=== PATIENT | male | born 1935 | race Caucasian/White ===

== ENCOUNTER 2016-07-23 08:06 | Emergency (ER) | payer MEDICARE, OTHER ==
[~2016-07-23 08:06] MED LIST: ASCO100089 PO; ASPI-628 PO; CHOL500014 PO; CYAN500 PO; DESO15CR25 TOP; DIPH50C PO; FOLI0.8T PO; GLUC-91 PO; HALO15OI4 TP; KRIL1CAP19 PO; MAGN500C4 PO; MELA1TAB10 PO; METO25TA99 PO; MULT-1007 PO; NIAC500T84 PO; PANT20T PO; PANTETHINE PO; PYRI100T2 PO; RAMI5CAP19 PO; RED600CA2 PO; TAMS0.4C29 PO; TRYP500C PO; UBID100C16 PO; ZLP10T PO; [UNRECOGNIZED DRUG - CODE] PO; [UNRECOGNIZED DRUG - CODE] TP
[2016-07-23 08:12] VITALS: BP 157/85; PULSE 66; RESP 14; O2SAT 94
[2016-07-23] MEDS ORDERED: WARF2.5T PO (08:18)
--- NOTE | 2016-07-23 08:57 | ED.REPORT ---
HPI-Extremity Problem Upper Date of Service Jul 23, 2016 ED Provider: Ricky Zhao MD 80 year old diabetic male anticoagulated on warfarin presents to the ER due to a cat bite to the right hand inflicted this morning. He states that the wound was "spurting blood" at the time of injury. The cat belongs to the patient and is immunized. Patient is unsure if his tetanus is up to date. Nursing Notes Stated Complaint: RT HAND CAT BITE Chief Complaint: Extremity Trauma Nursing Notes Reviewed: Yes Allergies: Coded Allergies: Tdtflah-Zwk-Mzf Reductase Inhibitor (Verified Allergy, Mild, 07/23/16) terbinafine (Verified Allergy, Unknown, 07/23/16) Scheduled ([pantethine]) 600 MG PO DAILY Amoxicillin/Clav K 875-125 mg (Augmentin 875-125 mg) 1 Each Tablet 1 TABLET PO BID Ascorbic Acid (Vitamin C) 1,000 Mg Tab.chew 1,000 MG PO DAILY Aspirin (Aspir 81) 81 Mg Tablet.dr 81 MG PO DAILY Cholecalciferol (Vitamin D3) (Vitamin D) 5,000 Unit Tablet 5,000 UNIT PO DAILY Cyanocobalamin (Vitamin B12) 1,000 Mcg Tablet 1,000 MCG PO DAILY Folic Acid (Folic Acid) 0.8 Mg Tablet 0.8 MG PO DAILY Gluc/Estiven-MSM#1/Vit C/Srinivas/Bor (Dujteat-Vqjjg-OYG Complex Cplt) 1 Each Tablet 1 EACH PO DAILY Krill/Om-3/Dha/Epa/Phospho/Ast (Krill Oil 500 mg Softgel) 1 Each Capsule 1 EACH PO DAILY Magnesium Oxide (Magnesium) 500 Mg Capsule 500 MG PO DAILY Melatonin (Melatonin 1 mg Tablet) 1 Each Tablet 1 MG PO HS Metoprolol Succinate ER (Metoprolol Succinate ER) 25 Mg Tab.er.24h 25 MG PO DAILY Multivitamin (Multi-Vitamin Daily) 1 Each Tablet 1 EACH PO DAILY Niacin (Slo-Niacin) 500 Mg Tablet.er 500 MG PO DAILY Pantoprazole DR (Protonix) 20 Mg Tablet 20 MG PO DAILY Pyridoxine HCl (Vitamin B-6) 100 Mg Tablet 100 MG PO DAILY Ramipril (Altace) 5 Mg Capsule 5 MG PO DAILY Red Yeast Rice (Red Yeast Rice) 600 Mg Capsule 1,200 MG PO DAILY Tamsulosin ER (Tamsulosin ER) 0.4 Mg Cap.er.24h 0.4 MG PO BID Tryptophan (l-Tryptophan) 500 Mg Capsule 1,500 MG PO HS Ubidecarenone (Coq-10) 100 Mg Capsule 100 MG PO DAILY Warfarin Sodium (Coumadin) 2.5 Mg Tablet 2.5 MG PO DAILY Scheduled PRN Clobetasol Propionate (Clobex) 59 Ml [place] 59 ML TP DAILY PRN PRN prn Desonide (Desonide Cream) 15 Gm Cream..g. 1 APPLIC TOP BID PRN PRN For Itching Diphenhydramine Hcl (Benadryl) 25 Mg Capsule 25 MG PO HS PRN PRN For Itching Halobetasol Propionate (Halobetasol Propionate) 15 Gm Oint...g. 15 GM TP DAILY PRN PRN For Itching Ibuprofen (Advil) 200 Mg Tablet 200 MG PO PRN PRN PRN For Pain Zolpidem (Ambien) 10 Mg Tab 10 MG PO HS PRN PRN For Insomnia General Time Seen by MD: 08:55 Chief Complaint Hand injury right Hx Obtained From: Patient Arrived By: Walk-in Onset Occurred: Just prior to arrival Symptom Duration: Since onset Caused by: Animal bite (cat) Context: Occurred at: Home injury Location: : Hand right Quality: Painful Severity: Current: Moderate Severity: Maximum: Moderate Pertinent Negative: Pt denies other symptoms Immunizations: Unknown, Tetanus not up to date Past Medical History Past Medical History Notes: Superintendent Institution: Dr. Santoyo Past Medical History Coronary artery disease (status post balloon angioplasty of the mid circumflex artery on 01/07/2014) Hypertension Dyslipidemia History of colon polyps Kidney stones History of nonspecific dysphagia line history psoriasis History of paroxysmal atrial flutter with left ventricular thrombus in 2004 Reports: Coronary artery disease, Diabetes mellitus, Hyperlipidemia, Hypertension Past Surgical History Stents Reports: Angioplasty Smoking History Former Smoker Social History Alcohol Use: Denies alcohol use Drug Use: Denies drug use Other Social History: Good social support, , Local resident Ambulatory Status Independent Review of Systems Constitutional: Denies: Chills, Fever Musculoskeletal: Reports: Extremity pain (Right hand), Denies: Back pain, Joint pain, Lumbar pain, Neck pain Neurologic: Denies: Headache Complete sys rev & neg: except as marked. Physical Exam Initial Vital Signs Vital Signs (First) Date Time Temp Pulse Resp B/P Pulse Ox O2 Delivery O2 Flow Rate FiO2 07/23/16 08:12 36.1 66 14 157/85 94 Room Air Initial VS: Reviewed General/Constitutional: Well-developed, Well-nourished Head / Eyes: Atraumatic, Normocephalic, PERRL Neck: Supple, Non-tender, Full range of motion Abdomen / GI: Soft, Non-tender, No guarding, No rebound, No distention Lower Extremities: Vascular intact, Neuro intact, No swelling, No tenderness Skin: Warm, Dry, No cyanosis Neurologic: Alert, Oriented, Nonfocal Psychiatric: Mood/affect normal, Behavior normal, Normal thought content Wrist / Hand: Full range of motion, Neurologic intact, Vascular intact Right Hand: Positive: Tenderness present... RIGHT HAND: Multiple skin tears and puncture wounds about base of right thumb measuring 2mm to 8mm that extend to subcutaneous fat. No signs of infection. Good capillary refill. FROM of hand and fingers. No ligamentous involvement. Mild oozing of blood, no evidence of arterial bleeding. Re-Eval/Medical Decision Med Decision/Clinical Course 80 year old diabetic male anticoagulated on warfarin presents to the ER due to a cat bite to the right hand inflicted this morning. Here in the emergency department patient afebrile with stable vital signs and in no apparent distress. No active bleeding present. No evidence of arterial injury. No evidence of neurologic injury or ligamentous involvement. Wound copiously irrigated and no foreign bodies present. Patient well-appearing and in no apparent distress. Patient's tetanus status was updated. He was prescribed a course of prophylactic Augmentin. Follow-up and return precautions including any signs of infection were reviewed in detail and he was discharged in good condition. Re-Evaluation/Progress : Time of Eval: 09:37 Re-Evaluation/Progress Note: Discussed physical examination findings and plan to discharge. Patient is amenable to the plan. Return precautions given. All other questions addressed. Counseled Regarding: Diagnosis, Lab results, Need for follow-up, When/why to return to ED Discharge & Departure Impression: Primary Impression: Cat bite of hand Encounter type: initial encounter Laterality: left Qualified Code: S61.452A - Open bite of left hand, initial encounter Additional Impressions: Anticoagulated on Coumadin Left hand pain Disposition: Home Discharge Condition All VS Reviewed: Yes Condition: Stable Patient Instructions: Animal Bite (DC) Additional Instructions: Thank you for seeking care at emergency room. You will be discharged with a prescription for augmentin. Please take as directed. You should follow-up with your INR clinic closely. You should return to the ED immediately if you develop worsening swelling, redness, pus, or any other concerning signs or symptoms. Thank you for letting us partake in your care today. Referrals: Miguel Scott MD (PCP) Tisha Attestation Portions of this note were transcribed by Patricio Uriostegui. I, Dr. Zhao, personally performed the history, physical exam and medical decision-making; I reviewed and confirmed the accuracy of the information in the transcribed note. Signed by: Tisha Garcia, 07/23/2016 and 09:43 copies to: Miguel Scott MD, Beck O MD Jul 23, 2016 08:57 PATRICIO URIOSTEGUI Jul 23, 2016 09:35
[2016-07-23] MEDS ORDERED: AMOX-366 PO (09:34)
[2016-07-23] MEDS ORDERED: TdaP Vaccine 0.5 mL Inj IM ONE (09:35)
== END 2016-07-23 10:41 | disposition home or self-care (01) ==
LOC: SED 08:06
DX: S61.451A Open bite of right hand, initial encounter (principal); S61.011A Laceration without foreign body of right thumb without damage to nail, initial encounter; S61.031A Puncture wound without foreign body of right thumb without damage to nail, initial encounter; W55.01XA Bitten by cat, initial encounter; Y93.89 Activity, other specified; Y92.009 Unspecified place in unspecified non-institutional (private) residence as the place of occurrence of the external cause; Y99.8 Other external cause status; I11.9 Hypertensive heart disease without heart failure; E11.59 Type 2 diabetes mellitus with other circulatory complications; I25.10 Atherosclerotic heart disease of native coronary artery without angina pectoris; E78.5 Hyperlipidemia, unspecified; Z95.5 Presence of coronary angioplasty implant and graft; Z79.82 Long term (current) use of aspirin; Z79.01 Long term (current) use of anticoagulants; Z87.891 Personal history of nicotine dependence; Z23 Encounter for immunization; Z88.8 Allergy status to other drugs, medicaments and biological substances
CPT/HCPCS: 85610; 90471; 90715; 99283; G0463

== ENCOUNTER 2016-07-24 23:23 | Inpatient (IN) | payer MEDICARE, OTHER ==
[~2016-07-24] VITALS: Ht 170.2 cm; Wt 75.9 kg
[~2016-07-24 23:23] MED LIST changes: +AMOX-366 PO; +WARF2.5T PO
[2016-07-24 23:31] VITALS: BP 138/87; PULSE 89; RESP 18; O2SAT 95
--- NOTE | 2016-07-24 23:41 | ED.REPORT ---
HPI-Extremity Problem Upper Date of Service Jul 24, 2016 ED Provider: Placido Briggs MD This is an 80 year old male with a history of atrial fibrillation, CAD, HTN, DM presenting to the emergency department complaining of R arm swelling and erythema that worsened today. Pt recently had laceration management of a cat bite to the R hand that occurred yesterday. Pt returned to ED due to increasing redness and swelling extending up the arm. Pt on Augmentin at this time. Denies fever, chills, nausea, vomiting, or any other symptoms at this time. Nursing Notes Stated Complaint: R HAND INFECTION Chief Complaint: General Complaint Nursing Notes Reviewed: Yes Allergies: Coded Allergies: Zmbafys-Hcw-Fnv Reductase Inhibitor (Verified Allergy, Mild, 07/24/16) Scheduled ([pantethine]) 600 MG PO DAILY Amoxicillin/Clav K 875-125 mg (Augmentin 875-125 mg) 1 Each Tablet 1 TABLET PO BID Ascorbic Acid (Vitamin C) 1,000 Mg Tab.chew 1,000 MG PO DAILY Aspirin (Aspir 81) 81 Mg Tablet.dr 81 MG PO DAILY Cholecalciferol (Vitamin D3) (Vitamin D) 5,000 Unit Tablet 5,000 UNIT PO DAILY Cyanocobalamin (Vitamin B12) 1,000 Mcg Tablet 1,000 MCG PO DAILY Folic Acid (Folic Acid) 0.8 Mg Tablet 0.8 MG PO DAILY Gluc/Estiven-MSM#1/Vit C/Srinivas/Bor (Jwzxcsb-Oicmq-EFF Complex Cplt) 1 Each Tablet 1 EACH PO DAILY Krill/Om-3/Dha/Epa/Phospho/Ast (Krill Oil 500 mg Softgel) 1 Each Capsule 1 EACH PO DAILY Magnesium Oxide (Magnesium) 500 Mg Capsule 500 MG PO DAILY Melatonin (Melatonin 1 mg Tablet) 1 Each Tablet 1 MG PO HS Metoprolol Succinate ER (Metoprolol Succinate ER) 25 Mg Tab.er.24h 25 MG PO DAILY Multivitamin (Multi-Vitamin Daily) 1 Each Tablet 1 EACH PO DAILY Niacin (Slo-Niacin) 500 Mg Tablet.er 500 MG PO DAILY Pantoprazole DR (Protonix) 20 Mg Tablet 20 MG PO DAILY Pyridoxine HCl (Vitamin B-6) 100 Mg Tablet 100 MG PO DAILY Ramipril (Altace) 5 Mg Capsule 5 MG PO DAILY Red Yeast Rice (Red Yeast Rice) 600 Mg Capsule 1,200 MG PO DAILY Tamsulosin ER (Tamsulosin ER) 0.4 Mg Cap.er.24h 0.4 MG PO BID Tryptophan (l-Tryptophan) 500 Mg Capsule 1,500 MG PO HS Ubidecarenone (Coq-10) 100 Mg Capsule 100 MG PO DAILY Warfarin Sodium (Coumadin) 2.5 Mg Tablet 2.5 MG PO DAILY Scheduled PRN Clobetasol Propionate (Clobex) 59 Ml [place] 59 ML TP DAILY PRN PRN prn Desonide (Desonide Cream) 15 Gm Cream..g. 1 APPLIC TOP BID PRN PRN For Itching Diphenhydramine Hcl (Benadryl) 25 Mg Capsule 25 MG PO HS PRN PRN For Itching Halobetasol Propionate (Halobetasol Propionate) 15 Gm Oint...g. 15 GM TP DAILY PRN PRN For Itching Ibuprofen (Advil) 200 Mg Tablet 200 MG PO PRN PRN PRN For Pain Zolpidem (Ambien) 10 Mg Tab 10 MG PO HS PRN PRN For Insomnia General Time Seen by MD: 23:35 Chief Complaint Arm injury right Hx Obtained From: Patient Arrived By: Walk-in Onset Occurred: 1 - 4 hours ago Symptom Duration: Since onset Severity: Current: Mild Pertinent Negative: Pt denies other symptoms Recent Healthcare: No recent hospitalization, Recent doctor visit Similar Sx Previous: No Past Medical History Past Medical History Notes: Final Inspector: Dr. Santoyo Past Medical History Coronary artery disease (status post balloon angioplasty of the mid circumflex artery on 01/07/2014) Hypertension Dyslipidemia History of colon polyps Kidney stones History of nonspecific dysphagia line history psoriasis History of paroxysmal atrial flutter with left ventricular thrombus in 2004 Reports: Coronary artery disease, Diabetes mellitus, Hyperlipidemia, Hypertension Reports: Atrial fibrillation Past Surgical History Stents Reports: Angioplasty Smoking History Former Smoker Social History Alcohol Use: Denies alcohol use Drug Use: Denies drug use Other Social History: Good social support, , Local resident Ambulatory Status Independent Review of Systems Constitutional: Denies: Chills, Fever Musculoskeletal: Reports: Extremity pain Skin: Reports Rash, Reports Swelling Neurologic: Denies: Headache Complete sys rev & neg: except as marked. GI: Denies: Nausea, Vomiting Physical Exam Initial Vital Signs Vital Signs (First) Date Time Temp Pulse Resp B/P Pulse Ox O2 Delivery O2 Flow Rate FiO2 07/24/16 23:31 36.8 89 18 138/87 95 Room Air Initial VS: Reviewed General/Constitutional: Well-developed, Well-nourished Head / Eyes: Atraumatic, Normocephalic, PERRL ENT: Mucous membranes moist, Conjunctiva normal, No scleral icterus Neck: Supple, Non-tender, Full range of motion Respiratory: Breath sounds normal, Clear to auscultation, No respiratory distress Cardiovascular: Regular rate & rhythm, Heart sounds normal, Intact distal pulses Abdomen / GI: Soft, Non-tender, No guarding, No rebound, No distention Lower Extremities: Vascular intact, Neuro intact, No swelling, No tenderness Skin: Warm, Dry, No cyanosis Neurologic: Alert, Oriented, Nonfocal Psychiatric: Mood/affect normal, Behavior normal, Normal thought content Wrist / Hand: Neurologic intact, Vascular intact R hand: Slight erythema on palmar aspect of R wrist extending to mid forearm Interpretation & Diagnostics Lab Results Interpretation Result Diagram: 07/25/16 0035 07/25/16 0035 Test 07/25/16 00:35 07/25/16 00:59 White Blood Count 12.0th/mm3 (3.8-10.1) Red Blood Count 4.29mil/mm3 (4.40-5.80) Hemoglobin 14.1g/dL (13.8-17.2) Hematocrit 42.1% (41.0-50.0) Mean Corpuscular Volume 98.1fL (81-100) Mean Corpuscular Hemoglobin 32.9pg (27.0-35.0) Mean Corpuscular Hemoglobin Concent 33.5% (32.0-37.0) Red Cell Distribution Width 13.2% (12.3-15.4) Platelet Count 168bil/L (150-400) Neutrophils (%) (Auto) 71.7% (40-74) Lymphocytes (%) (Auto) 16.8% (14-46) Monocytes (%) (Auto) 10.4% (4-12) Eosinophils (%) (Auto) 0.7% (0-5) Basophils (%) (Auto) 0.2% (0-3) Sodium Level 138mEq/L (134-144) Potassium Level 4.8mEq/L (3.5-5.2) Chloride Level 99mEq/L (97-108) Carbon Dioxide Level 25mmol/L (18-29) Blood Urea Nitrogen 25mg/dL (8-27) Creatinine 0.92mg/dL (0.76-1.27) Estimat Glomerular Filtration Rate 84mL/min (>59) Glucose Level 157mg/dL (60-99) Calcium Level 9.5mg/dL (8.5-10.1) Total Bilirubin 0.5mg/dL (0.0-1.2) Aspartate Amino Transf (AST/SGOT) 26U/L (0-50) Alanine Aminotransferase (ALT/SGPT) 18U/L (0-44) Alkaline Phosphatase 47U/L (25-160) C-Reactive Protein 11.5mg/dL (0.0-0.5) Total Protein 7.3g/dL (6.4-8.4) Albumin 4.2g/dL (3.4-5.0) Lactic Acid Level 0.9mmol/L (0.4-2.0) Re-Eval/Medical Decision Med Decision/Clinical Course 80-year-old male history of CAD, diabetes, [place] presenting several days status post right hand cat bite on Augmentin at home presenting with worsening cellulitis and hand swelling today. No fevers, nausea vomiting. He has a cellulitis extending medial aspect right forearm one third distal forearm. Moderate right hand swelling. No purulent discharge. White blood cell count 12,000. CRP 11. Patient given 1 Zosyn in the ER and blood cultures sent prior to antibiotics. Will be admitted for observation given failure of outpatient antibiotics. May warrant hand surgery consultation in the morning for possible washout. Re-Evaluation/Progress : Time of Eval: 01:06 Re-Evaluation/Progress Note: Discussed lab results and need for admission, pt understands and agrees with plan, all questions addressed. Consultation : Referral / Consult Name: Annmarie Machuca MD Consulted With: Hospitalist Call Returned at: 01:15 Assembler Garment Form: Accepts admit Counseled Regarding: Diagnosis, Need for follow-up, Need for admission Discharge & Departure Impression: Primary Impression: Cellulitis Site of cellulitis: extremity Site of cellulitis of extremity: upper extremity Laterality: right Qualified Code: L03.113 - Cellulitis of right upper limb Disposition: ADMITTED TO HOSPITAL Discharge Condition All VS Reviewed: Yes Condition: Stable Referrals: Miguel Scott MD (PCP) Scribe Attestation Portions of this note were transcribed by Janette Holder. I, Dr. Briggs personally performed the history, physical exam and medical decision-making; I reviewed and confirmed the accuracy of the information in the transcribed note. Signed by Tisha Desir, 07/24/2016 at 03:00. Placido Briggs MD Jul 24, 2016 23:41 JANETTE HOLDER Jul 24, 2016 23:43
[2016-07-24] MEDS ORDERED: Piperacillin-Tazo 3.375 Gm Inj 3.375 GM in Dextrose 5% Minibag Plus 50 ML IV ONE (23:55)
[2016-07-25 00:51] LABS: BASOPHILS % (AUTO) 0.2 % (0-3); EOSINOPHILS % (AUTO) 0.7 % (0-5); MONOCYTES % (AUTO) 10.4 % (4-12); Mean Corpuscular Hemoglobin 32.9 pg (27.0-35.0); Mean Corpuscular Volume 98.1 fL (81-100); NEUTROPHILS % (AUTO) 71.7 % (40-74); Platelet Count 168 bil/L (150-400)
[2016-07-25] MEDS ORDERED: Ondansetron 2 mg/mL 2 mL Inj IVPUSH PRN ×2 (01:25→02:15)
[2016-07-25] MEDS ORDERED: Alum-Mag Hydrox-Simeth 30 mL Suspension PO PRN ×2 (01:25→02:15)
[2016-07-25] MEDS ORDERED: HYDROcodone-APAP 5-325 mg Tablet PO PRN (02:15)
[2016-07-25] MEDS ORDERED: Polyethylene Glycol (PEG) 17 Gm Powder PO PRN (02:15)
--- NOTE | 2016-07-25 03:14 | PCM.HPMED ---
Subjective Date of Service Jul 25, 2016 Primary Provider: Admitting Physician: Primary Care Physician: Miguel Scott MD Attending Physician: Chief Complaint: Right forearm pain and swelling History of Present Illness: Patient is an 80-year-old male with paroxysmal atrial fibrillation, CAD s/p PCI , hypertension and diabetes presenting with right forearm pain swelling and erythema. The patient sustained a cat bite on his right hand and was seen in the ED on 07/23/2016. He was discharged with Augmentin but returned to [facility] ED today since he noticed increased swelling and tracking of the erythema up his forearm. Patient reports the pain and swelling has improved some since this morning. Patient reports minimal decrease with range of motion, most noticeable with his thumb. He reports associated fever and chills but denies numbness or tingling of his fingers, nausea, emesis, shortness of breath, dizziness. In the ED, vitals: temp 36.8, HR 89, RR 18 satting 95% on room air, BP 138/87. Notable labs: WBC 12.0, CRP 11.5. Zosyn was started in the ED. Review of Systems: A comprehensive review of systems was conducted with the patient and found to be negative except as above in the History of Present Illness. Allergies Coded Allergies: Myjeqst-Can-Rrp Reductase Inhibitor (Verified Allergy, Mild, 07/24/16) Home Medications Ramipril 5mg daily Clobetasol 0.05 % Topical Solution - apply once daily to affected areas CoQ-10 100mg daily Coumadin 5mg tablet Flomax 0.8mg daily 1/2 hour following the same meal each day for bladder Vitamin D 2,000u daily ASA 81mg daily Methocarbamol 500 mg tablet TID MSM 1,000 mg Cap SL nitroglycerin 0.4mg PRN Metoprolol succinate 25mg daily Vitamin C 1,000mg daily PMH Paroxysmal atrial fibrillation CAD s/p PCI Hypertension Type 2 diabetes mellitus Dyslipidemia Psoriasis . Surgical History Cataracts Appendectomy . 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 No acute distress, well-developed, well-nourished, appropriately interactive HEENT: Normocephalic, atraumatic. External ears without defect. Pupils equal, round, and reactive to light. Anicteric sclerae, moist conjunctivae, and no lid lag. Oropharynx free of erythema and cobble stoning with moist mucosa. Neck: Supple. No lymphadenopathy or thyromegaly. Cardiovascular: Regular rate and rhythm with no murmurs, rubs, or gallops appreciated Pulmonary: Clear to auscultation bilaterally with no crackles, wheezes, or rhonchi. Normal respiratory effort with no use of accessory muscles. Abdomen: Bowel tones present. Soft, nontender, nondistended. Extremities: Right hand with erythema extending to ventral surface mid-forearm. Swelling on dorsal surface of right hand. Full range of motion of right hand and digits. 1st MTP joint with swelling. Skin: Normal temperature, turgor, and texture. Left lower extremity with plaque. Neurological: Cranial nerves grossly intact. Psychiatric: Normal mood and affect. Alert and oriented to person, place, and time. Lab and Diagnostics Result Diagram: 07/25/16 0035 07/25/16 003 Assessment & Plan Patient is an 80-year-old male with paroxysmal atrial fibrillation, CAD s/p PCI , hypertension and diabetes presenting with right forearm pain, swelling and erythema, and admitted for cellulitis. 1. Right hand and forearm cellulitis, acute. Present on admission. Active -Patient on outpatient Augmentin for one day but symptoms worsened -Right hand x-ray pending -Pending: ASO, streptozyme, MRSA screen -Continue Zosyn 2. CAD s/p PCI, chronic. Present on admission -Continue ASA, metoprolol 3. Hypertension, chronic. Present on admission -Continue home dose ramipril, metoprolol 4. Paroxysmal atrial fibrillation, chronic. Present on admission -Warfarin dosed per pharmacy -INR in AM -Telemetry 5. BPH, chronic. Present on admission -Continue home dose tamsulosin 6. Type 2 diabetes mellitus, chronic. Present on admission -Bedside blood glucose checks -Not on outpatient oral antihyperglycemic agent Patient Status: Patient is admitted under inpatient status with expected length of stay greater than 2 midnights due to severity of presenting symptoms, risk of adverse event, and complexity of treatment plan. VTE Prophylaxis: Other (On Warfarin) Resuscitation Status: CPR: Attempt Resuscitation Attending Statement Pt seen and examined by myself and agree with above plan. Gregory Abbasi DO Jul 25, 2016 02:30 Annmarie Machuca MD Jul 25, 2016 06:51
[2016-07-25 03:35] VITALS: BP 98/57; PULSE 86; RESP 18; O2SAT 93
--- NOTE | 2016-07-25 05:00 | NUR ---
Admit and right hand. Patient is being held in the ER due to waiting for a room on the floor. Patient is A/Ox4 and answering all questions appropriately. Patient reported that several days ago his cat stretched his hand and since then his hand has become red, swollen and painful. CMS is intact. Patient reports mild pain with movement. Admit process completed and patient denies needs at this time.
[2016-07-25 05:26] LABS: BASOPHILS % (AUTO) 0.2 % (0-3); EOSINOPHILS % (AUTO) 1.2 % (0-5); MONOCYTES % (AUTO) 11.4 % (4-12); Mean Corpuscular Hemoglobin 32.5 pg (27.0-35.0); Mean Corpuscular Volume 97.5 fL (81-100); NEUTROPHILS % (AUTO) 69.4 % (40-74); Platelet Count 155 bil/L (150-400)
[2016-07-25 05:55] LABS: INR 1.27 ratio
--- NOTE | 2016-07-25 06:13 | NUR ---
Patient refused tele. Patient refused tele and stated that he didn't need it. Patient reported that all he needs is sleep and antibiotics.
[2016-07-25 08:18] VITALS: BP 124/70; PULSE 78; RESP 19; O2SAT 94
[2016-07-25] MEDS: Piperacillin-Tazo 3.375 Gm Inj 3.375 GM in Dextrose 5% Minibag Plus 50 ML IV SCH ×2 (08:30→17:13)
[2016-07-25] MEDS: MeTOProlol XL 25 mg ER24 Tablet PO SCH (08:30)
--- NOTE | 2016-07-25 09:08 | DRSVH ---
PROCEDURE: X-RAY RIGHT HAND, TWO VIEWS ([id number]) INDICATIONS: right hand swelling and pain TECHNIQUE: 3 views of the hand(s) acquired. COMPARISON: None. FINDINGS: Bones: No fractures or dislocations. Fixed flexion deformity of the fifth PIP joint. Mild osteophy tic changes. Carpal bones are normally aligned. No suspicious bony lesions. Soft tissues: No suspicious soft tissue calcifications. IMPRESSION: No displaced fracture seen. If there is continued pain, followup exam or additional renu ging such as MRI or CT could be performed for further assessment. Dictated by: Jesus SEXTON Interpreted: Irene Chery MD on 07/25/2016 at 9:07 Transcribed by: ANA PAULA on 07/25/2016 at 9:07 Approved by: Irene Chery M.D. on 07/25/2016 at 10:38
[2016-07-25] MEDS ORDERED: WARF5TAB7 PO (10:40)
[2016-07-25 12:29] VITALS: BP 107/61; PULSE 63; RESP 19; O2SAT 93
--- NOTE | 2016-07-25 15:19 | PCM.CONPHA ---
Subjective Right forearm pain and swelling Reason for Pharmacy Consult: Anticoagulation Management Assessment/Plan Assessment/Plan Warfarin Management by Pharmacy Indication: AFIB CHADS2-VASc: 5 Home Dose: Warfarin 5 mg daily INR Goal: 2-3 Duration: Unknown Wt: 76 kg Anticoagulation Trends Lab Date Result Dose INR 07/25/16 1.27 Therapeutic bridge therapy: No Assessment/Plan - Subtherapeutic INR. Unclear if dose was taken last PM. -Will initiate warfarin 5 mg tonight. -Pharmacy to monitor INR/CBC/signs of bleeding while inpatient. Thanks, Joe Aponte Pharm.D. Joe Aponte Jul 25, 2016 15:19
--- NOTE | 2016-07-25 17:45 | NUR ---
hand swelling right hand redness and swelling has improved throughout the day. redness/swelling decreased. patient stated that, "my hand is feeling much better this evening". continue to monitor
[2016-07-25 18:23] VITALS: BP 123/74; PULSE 61; RESP 18; O2SAT 93
[2016-07-25] MEDS ORDERED: 0.9% Sodium Chloride 250 ML ONE (19:45)
[2016-07-25 20:03] VITALS: BP 125/78; PULSE 66; RESP 16; O2SAT 92
[2016-07-25 21:27] LABS: APPEARANCE,URINE CLEAR (CLEAR,HAZY); COLOR,URINE STRAW (YELLOW)
[2016-07-25 21:28] LABS: OCCULT BLOOD,URINE NEGATIVE (NEGATIVE); PH,URINE 6.5 (5.0-8.0); UROBILINOGEN,URINE NORMAL (NORMAL)
[2016-07-25] MEDS ORDERED: DIPH25CA6 PO (22:44)
[2016-07-25] MEDS ORDERED: MULT1CAP33 PO (22:44)
[2016-07-25] MEDS ORDERED: ASPI-973 PO (22:44)
[2016-07-25] MEDS ORDERED: CHOL5000 PO (22:44)
[2016-07-25] MEDS ORDERED: IBUP200C PO (22:44)
[2016-07-26] MEDS ORDERED: 0.9% Sodium Chloride 250 ML ONE (01:12)
[2016-07-26 01:15] VITALS: BP 122/81; PULSE 62; RESP 16; O2SAT 93
[2016-07-26] MEDS: Piperacillin-Tazo 3.375 Gm Inj 3.375 GM in Dextrose 5% Minibag Plus 50 ML IV SCH ×2 (01:35→08:41)
--- NOTE | 2016-07-26 02:02 | NUR ---
SLEEP Earlier this shift, pt reported not sleeping well the previous night and when asked about sleep aids, he reported he has "bad reactions" with any sleep aid. Pt stated he is a light sleeper and the bed air shifting wakes him up. This RN educated pt on the pressure-reducing functions of bed and the only way to stop this function is to turn the bed off. Pt reported he would rather have the bed unplugged and not use the buttons than be kept awake with the movement. RN unplugged bed. Later, pt requested putting the HOB up and stated he would try to stay in one position and maybe call to turn the bed off later. Hourly rounding in place.
[2016-07-26 05:59] LABS: Mean Corpuscular Hemoglobin 32.1 pg (27.0-35.0); Mean Corpuscular Volume 97.5 fL (81-100)
[2016-07-26 06:11] LABS: INR 1.2 ratio
--- NOTE | 2016-07-26 08:21 | PCM.PHAPRO ---
Progress Right forearm pain and swelling INR 1.27 1.20 INR change -0.07 Warf Dose 5 5 Miguel Rashid Jul 26, 2016 08:21
[2016-07-26 08:32] VITALS: BP 121/74; PULSE 74; RESP 18; O2SAT 96
[2016-07-26] MEDS: MeTOProlol XL 25 mg ER24 Tablet PO SCH (08:41)
--- NOTE | 2016-07-26 09:02 | NUR ---
Social Work Initial Assessment: SW met with patient at bedside to discuss discharge plan. Patient is a 80 year old male admitted on 07/25/16 for cellulitis. Patient payer as Medicare and [employer]. 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 Patient PCP as MD Scott. Patient resides in [facility] with Tangela, who assists with needs at home. Patient pharmacy of choice as [facility]. Patient has no previous HHC, SNF, or DME history. Patient states being independent with needs and states having no identified discharge needs at this time. Patient states having AD on file with the hospital. Patient denied any discharge needs at this time. SW to follow. PLAN: home with , via POV, pending clinical course. No anticipated discharge needs at this time. SW to follow. Ralph KERNS Addendum: 07/26/16 at 0905 by JACE COONEY Amended: Links added.
[2016-07-26] MEDS ORDERED: CLIN300C3 PO (12:29)
--- NOTE | 2016-07-26 12:32 | PCM.DIMED ---
Discharge Instructions Date of Service Jul 26, 2016 Dates of Hospitalization Jul 25, 2016 at 05:51 Discharge Diagnosis Discharge Diagnosis Right hand cellulitis , Paroxysmal atrial fibrillation CAD s/p PCI, Hypertension, Type 2 diabetes mellitus, Dyslipidemia, Psoriasis Diet Low fat, Low Sodium Activity No restrictions Call your provider Fever or Chills Patient Instructions Follow-up with PCP in: 1 week (Primary care doctor ) Adair Sevilla MD Jul 26, 2016 12:32
--- NOTE | 2016-07-26 14:15 | NUR ---
Discharge patient discharged home at 1410hrs today. to drive. discharge instructions reviewed; medications and follow-up care. Signs and symptoms to watch for over next several days, if worse seek medical attention. patient verbalized understanding and agreed with plan of care.
--- NOTE | 2016-07-26 17:10 | PCM.DC.MED ---
Discharge Summary Date of Service Jul 26, 2016 Dates of Hospitalization Date of Hospital Admission Jul 25, 2016 at 05:51 Date of Discharge: Jul 26, 2016 Providers: Admitting Physician: Annmarie Machuca MD Primary Care Physician: Miguel Scott MD Attending Physician: Annmarie Machuca MD Diagnosis at Time of Discharge Diagnosis at Time of Discharge Right hand cellulitis , Paroxysmal atrial fibrillation CAD s/p PCI, Hypertension, Type 2 diabetes mellitus, Dyslipidemia, Psoriasis Brief History Patient is an 80-year-old male with paroxysmal atrial fibrillation, CAD s/p PCI , hypertension and diabetes presenting with right forearm pain swelling and erythema. The patient sustained a cat bite on his right hand and was seen in the ED on 07/23/2016. He was discharged with Augmentin but returned to [facility] ED today since he noticed increased swelling and tracking of the erythema up his forearm. Patient reports the pain and swelling has improved some since this morning. Patient reports minimal decrease with range of motion, most noticeable with his thumb. He reports associated fever and chills but denies numbness or tingling of his fingers, nausea, emesis, shortness of breath, dizziness. In the ED, vitals: temp 36.8, HR 89, RR 18 satting 95% on room air, BP 138/87. Notable labs: WBC 12.0, CRP 11.5. Zosyn was started in the ED. Hospital Course Patient is an 80-year-old male with paroxysmal atrial fibrillation, CAD s/p PCI , hypertension and diabetes presenting with right forearm pain, swelling and erythema, and admitted for cellulitis. 1. Right hand and forearm cellulitis, acute. Present on admission. Active -Patient falied outpatient treatment with Augmentin Patient improved dramatically with IV Unasyn. He is discharged home today on a seven-day course of clindamycin, 2. CAD s/p PCI, chronic. Present on admission -Continue ASA, metoprolol 3. Hypertension, chronic. Present on admission -Continue home dose ramipril, metoprolol 4. Paroxysmal atrial fibrillation, chronic. Present on admission Continue offering as outpatient. PCP to monitor INR 5. BPH, chronic. Present on admission on tamsulosin 6. Type 2 diabetes mellitus, chronic. Present on admission Diet-controlled patient showed dramatic improvement of her right hand cellulitis following a cat bite. He is discharged home in stable condition on a seven-day course of oral clindamycin Exam Vital Signs (Last) Date Time Temp Pulse Resp B/P Pulse Ox O2 Delivery O2 Flow Rate FiO2 07/26/16 08:32 37.1 74 18 121/74 96 Room Air Exam General: Well-nourished male sitting in chair comfortably. Neck: Supple, trachea is midline Chest: Normal respiratory effort Lung : clear bilaterally wheezing heart: irregular rate and rhythm Abdomen: Benign Extremity: Right hand cellulitis over the thumb and dorsal aspect of the hand. Test 07/25/16 00:35 07/25/16 00:59 07/25/16 05:22 07/25/16 21:13 C-Reactive Protein 11.5mg/dL (0.0-0.5) Lactic Acid Level 0.9mmol/L (0.4-2.0) Neutrophils (%) (Auto) 69.4% (40-74) Lymphocytes (%) (Auto) 17.6% (14-46) Monocytes (%) (Auto) 11.4% (4-12) Eosinophils (%) (Auto) 1.2% (0-5) Basophils (%) (Auto) 0.2% (0-3) Streptozyme 61.9IU/mL (0.0-200.0) Urine Color Straw (YELLOW) Urine Appearance Clear (CLEAR,HAZY) Urine pH 6.5 (5.0-8.0) Urine Specific [place] 1.020 (1.003-1.035) Urine Protein Negativemg/dL (NEG,TRACE) Urine Glucose (UA) Negativemg/dL (NEGATIVE) Urine Ketones Negativemg/dL (NEGATIVE) Urine Occult Blood Negative (NEGATIVE) Urine Nitrite Negative (NEGATIVE) Urine Bilirubin Negative (NEGATIVE) Urine Urobilinogen Normalmg/dL (NORMAL) Urine Leukocyte Esterase Negative (NEGATIVE) Urine RBC 0-2/hpf (0-2) Urine WBC 0-5/hpf (0-5) Urine Epithelial Cells None/hpf (NONE-MOD) Urine Crystals None seen (NONE SEEN) Urine Bacteria None/hpf (NONE-FEW) Urine Hyaline Casts None/lpf (NONE) Urine Granular Casts None seen (NONE SEEN) Urine Waxy Casts None seen (NONE SEEN) Urine Red Blood Cell Casts None seen (NONE SEEN) Urine White Blood Cell Casts None seen (NONE SEEN) Urine Mucus None seen (None Seen) Urine Trichomonas None seen (NONE SEEN) Urine Yeast None (NONE SEEN) Urinalysis Comment None Urine Culture Reflexed Not indicated Test 07/26/16 05:40 White Blood Count 8.4th/mm3 (3.8-10.1) Red Blood Count 3.96mil/mm3 (4.40-5.80) Hemoglobin 12.7g/dL (13.8-17.2) Hematocrit 38.6% (41.0-50.0) Mean Corpuscular Volume 97.5fL (81-100) Mean Corpuscular Hemoglobin 32.1pg (27.0-35.0) Mean Corpuscular Hemoglobin Concent 32.9% (32.0-37.0) Red Cell Distribution Width 13.0% (12.3-15.4) Platelet Count 161bil/L (150-400) Prothrombin Time 12.9sec (8.1-12.5) Prothromb Time International Ratio 1.20ratio Sodium Level 141mEq/L (134-144) Potassium Level 4.3mEq/L (3.5-5.2) Chloride Level 103mEq/L (97-108) Carbon Dioxide Level 24mmol/L (18-29) Blood Urea Nitrogen 19mg/dL (8-27) Creatinine 0.80mg/dL (0.76-1.27) Estimat Glomerular Filtration Rate 99mL/min (>59) Glucose Level 144mg/dL (60-99) Calcium Level 8.8mg/dL (8.5-10.1) Total Bilirubin 0.4mg/dL (0.0-1.2) Aspartate Amino Transf (AST/SGOT) 16U/L (0-50) Alanine Aminotransferase (ALT/SGPT) 11U/L (0-44) Alkaline Phosphatase 39U/L (25-160) Total Protein 5.7g/dL (6.4-8.4) Albumin 3.5g/dL (3.4-5.0) Discharge Medications Discharge Medications ([pantethine]) 600 MG PO DAILY (Reported) Ascorbic Acid (Vitamin C) 1,000 Mg Tab.chew 1,000 MG PO DAILY (Reported) Aspirin (Aspirin) 81 Mg Tablet 81 MG PO DAILY (Reported) Cholecalciferol (Vitamin D3) (Vitamin D3) 5,000 Unit Capsule 5,000 UNIT PO DAILY (Reported) Clindamycin HCl (Cleocin) 300 Mg Capsule 500 MG PO TID Prescribed by: YEIMY IRELAND MD Cyanocobalamin (Vitamin B12) 1,000 Mcg Tablet 1,000 MCG PO DAILY (Reported) Gluc/Estiven-MSM#1/Vit C/Srinivas/Bor (Wvsitlb-Kgcrp-DRI Complex Cplt) 1 Each Tablet 1 EACH PO DAILY (Reported) Krill/Om-3/Dha/Epa/Phospho/Ast (Krill Oil 500 mg Softgel) 1 Each Capsule 1 EACH PO DAILY (Reported) Magnesium Oxide (Magnesium) 500 Mg Capsule 500 MG PO DAILY (Reported) Metoprolol Succinate ER (Metoprolol Succinate ER) 25 Mg Tab.er.24h 25 MG PO DAILY (Reported) Multivitamin (Multivitamins) 1 Each Capsule 1 EACH PO DAILY (Reported) Ramipril (Altace) 5 Mg Capsule 5 MG PO DAILY (Reported) Red Yeast Rice (Red Yeast Rice) 600 Mg Capsule 1,200 MG PO DAILY (Reported) Tamsulosin ER (Tamsulosin ER) 0.4 Mg Cap.er.24h 0.4 MG PO BID (Reported) Ubidecarenone (Coq-10) 100 Mg Capsule 100 MG PO DAILY (Reported) Warfarin Sodium (Warfarin Sodium) 5 Mg Tablet 5 MG PO DAILY (Reported) As needed Clobetasol Propionate (Clobex) 59 Ml [place] 59 ML TP DAILY PRN PRN prn (Reported ) Desonide (Desonide Cream) 15 Gm Cream..g. 1 APPLIC TOP BID PRN PRN For Itching ( Reported) Halobetasol Propionate (Halobetasol Propionate) 15 Gm Oint...g. 15 GM TP DAILY PRN PRN For Itching (Reported) Ibuprofen (Ibuprofen) 200 Mg Capsule 200 MG PO QID PRN PRN For Pain (Reported) diphenhydrAMINE HCl (Benadryl) 25 Mg Capsule 25 MG PO HS PRN PRN (Reported) Followup Plan Disposition: Home Discharge Diet: Low fat, Low Sodium Discharge Activity: No restrictions Follow-up with PCP in: 1 week (Primary care doctor ) Time spent 35 minutes. Patient seen and examined on the day of discharge Yeimy Ireland MD Jul 26, 2016 17:10
== END 2016-07-26 14:07 | disposition home or self-care (01) | DRG 603 ==
LOC: SED 23:23 → OFED 07-25 05:51 → MOC 07-25 13:03
PROVIDERS: ADMIT Specialist; ATTEND Specialist
DX: L03.113 Cellulitis of right upper limb (principal); Z79.82 Long term (current) use of aspirin; Z79.01 Long term (current) use of anticoagulants; Z86.010 Personal history of colon polyps; Z98.61 Coronary angioplasty status; Z87.891 Personal history of nicotine dependence; I25.10 Atherosclerotic heart disease of native coronary artery without angina pectoris; I10 Essential (primary) hypertension; I48.0 Paroxysmal atrial fibrillation; N40.0 Benign prostatic hyperplasia without lower urinary tract symptoms; E11.9 Type 2 diabetes mellitus without complications

== ENCOUNTER 2017-01-09 01:32 | Day surgery (SDC) | payer MEDICARE, OTHER ==
[~2017-01-09 01:32] MED LIST changes: -AMOX-366 PO; -ASPI-628 PO; +ASPI-973 PO; +CHOL5000 PO; -CHOL500014 PO; +DIPH25CA6 PO; -DIPH50C PO; -FOLI0.8T PO; +IBUP200C PO; -MELA1TAB10 PO; +METO25TA3 PO; -MULT-1007 PO; +MULT1CAP33 PO; -NIAC500T84 PO; -PANT20T PO; -PYRI100T2 PO; -TAMS0.4C29 PO; +TAMS0.4C98 PO; -TRYP500C PO; -WARF2.5T PO; +WARF5TAB7 PO; -ZLP10T PO; -[UNRECOGNIZED DRUG - CODE] PO
[2017-01-09] MEDS ORDERED: APIX5TAB PO (07:24)
--- NOTE | 2017-01-09 08:08 | NUR ---
Admitted through [facility] this AM and found to be in a Sinus Papo - [address] Santoyo notified - Patient seen by Dr Santoyo prior to D/C from [facility]. Plan to remain on Eliquis paper script given to patient by Dr Santoyo for Eliquis. Patient to start Flecainide - Patient has a bottle of Flecainide at home no new script. Patient and understand plan of care.
== END 2017-01-09 23:59 | disposition home or self-care (01) ==
LOC: SOUO 01:32
PROVIDERS: ATTEND Internal Medicine Interventional Cardiology
DX: I48.0 Paroxysmal atrial fibrillation (principal); Z53.8 Procedure and treatment not carried out for other reasons; I25.10 Atherosclerotic heart disease of native coronary artery without angina pectoris; Z98.61 Coronary angioplasty status; I10 Essential (primary) hypertension; E11.9 Type 2 diabetes mellitus without complications; Z87.891 Personal history of nicotine dependence; Z79.01 Long term (current) use of anticoagulants; Z79.82 Long term (current) use of aspirin

== ENCOUNTER 2017-02-02 10:34 | Emergency (ER) | payer MEDICARE, OTHER ==
[~2017-02-02] VITALS: Ht 170.2 cm; Wt 75.0 kg
[~2017-02-02 10:34] MED LIST changes: +APIX5TAB PO; -ASPI-973 PO; -METO25TA99 PO; -WARF5TAB7 PO
[2017-02-02 10:38] VITALS: BP 126/73; PULSE 122; RESP 16; O2SAT 97
--- NOTE | 2017-02-02 10:51 | ED.REPORT ---
HPI-General Illness Date of Service Feb 02, 2017 ED Provider: Ricky Zhao MD Patient is an 81 year old male with a hx of [place], CAD s/p 3 cardiac stents, Afib, HTN, and DM on Eliquis who presents to the ED complaining of intermittent racing heart for the past week but worse last night. Associated symptoms include HR as low as the 30's and as high as the 140's, lightheadedness, intermittent chest pain, and exertional dyspnea. His symptoms have kept him from sleeping. He denies dizziness, headache, extremity pain, or any other symptoms. He was scheduled for a cardioversion on 01/09/17 but when he arrived, he was in sinus rhythm. Patient takes flecainide (50mg), Eliquis, tamsulosin, ramipril, and Metoprolol (25mg). He took an extra metoprolol last night. He did not take any of his medications this morning. He has been taking his Eliquis consistently. His operating room assistant is Dr. Madison. Nursing Notes Stated Complaint: HEART AFIB Chief Complaint: Dysrhythmia/Cardiac Nursing Notes Reviewed: Yes Allergies: Coded Allergies: Gceeupg-Bfi-Cbz Reductase Inhibitor (Verified Allergy, Mild, 02/02/17) Scheduled ([pantethine]) 600 MG PO DAILY Apixaban (Eliquis) 5 Mg Tablet 5 MG PO BID Ascorbic Acid (Vitamin C) 1,000 Mg Tab.chew 1,000 MG PO DAILY Cholecalciferol (Vitamin D3) (Vitamin D3) 5,000 Unit Capsule 5,000 UNIT PO DAILY Cyanocobalamin (Vitamin B12) 1,000 Mcg Tablet 1,000 MCG PO DAILY Gluc/Estiven-MSM#1/Vit C/Srinivas/Bor (Qixlyam-Yzsau-DGZ Complex Cplt) 1 Each Tablet 1 EACH PO DAILY Krill/Om-3/Dha/Epa/Phospho/Ast (Krill Oil 500 mg Softgel) 1 Each Capsule 1 EACH PO DAILY Magnesium Oxide (Magnesium) 500 Mg Capsule 500 MG PO DAILY Metoprolol Succinate ER (Toprol XL) 25 Mg Tablet 25 MG PO DAILY Multivitamin (Multivitamins) 1 Each Capsule 1 EACH PO DAILY Ramipril (Altace) 5 Mg Capsule 5 MG PO DAILY Red Yeast Rice (Red Yeast Rice) 600 Mg Capsule 1,200 MG PO DAILY Tamsulosin (Flomax) 0.4 Mg Capsule 0.8 MG PO DAILY Ubidecarenone (Coq-10) 100 Mg Capsule 100 MG PO DAILY Scheduled PRN Clobetasol Propionate (Clobex) 59 Ml [place] 59 ML TP DAILY PRN PRN prn Desonide (Desonide Cream) 15 Gm Cream..g. 1 APPLIC TOP BID PRN PRN For Itching Halobetasol Propionate (Halobetasol Propionate) 15 Gm Oint...g. 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 Santoyo Past Medical History Coronary artery disease (status post balloon angioplasty of the mid circumflex artery on 01/07/2014) Hypertension Dyslipidemia History of colon polyps Kidney stones History of nonspecific dysphagia line history psoriasis History of paroxysmal atrial flutter with left ventricular thrombus in 2004 Reports: Coronary artery disease, Diabetes mellitus, Hyperlipidemia, Hypertension Reports: Atrial fibrillation Past Surgical History Stents Reports: Angioplasty, Cataract surgery Smoking History Former Smoker Social History Alcohol Use: "Social" Drug Use: Denies drug use Other Social History: Good social support, , Local resident Ambulatory Status Independent Review of Systems +Aflutter, variable HR Full Review of Systems Cardiovascular: Reports: Chest pain, Dyspnea on exertion Musculoskeletal: Denies: Extremity pain Neurologic: Reports: Lightheaded, Denies: Dizziness, Headache Psychiatric: Reports: Insomnia Complete sys rev & neg: except as marked. Physical Exam Vital Signs Vital Signs Date Time Temp Pulse Resp B/P Pulse Ox O2 Delivery O2 Flow Rate FiO2 02/02/17 12:41 36.3 53 12 115/66 100 Room Air 02/02/17 11:58 134/80 02/02/17 11:57 54 12 92 Room Air 02/02/17 11:49 114 16 124/79 96 Room Air 02/02/17 11:06 105 18 137/83 95 Room Air 02/02/17 10:38 36.1 122 16 126/73 97 Room Air Initial VS: Reviewed, Vital signs normal Head / Eyes: Atraumatic, Normocephalic Neck: Supple, Full range of motion Respiratory: Breath sounds normal, Clear to auscultation, No respiratory distress Abdomen / GI: Soft, Non-tender Skin: Warm, Dry Neurologic: Alert, Oriented, Nonfocal Psychiatric: Mood/affect normal, Behavior normal, Normal thought content General/Constitutional: Awake, Alert, No acute distress Ansering questions appropriately Heart Rate / Rhythm: Positive: Irregular rhythm, Tachycardia Strong distal pulses Lower Extremity / Pelvis / MS: Inspection NL No calf swelling, tenderness, or palpaple cords Good cap refill Interpretation & Diagnostics Lab Results Interpretation Result Diagram: 02/02/17 1100 02/02/17 1100 Test 02/02/17 11:00 White Blood Count 6.1th/mm3 (3.8-10.1) Red Blood Count 4.44mil/mm3 (4.40-5.80) Hemoglobin 14.4g/dL (13.8-17.2) Hematocrit 42.7% (41.0-50.0) Mean Corpuscular Volume 96.2fL (81-100) Mean Corpuscular Hemoglobin 32.4pg (27.0-35.0) Mean Corpuscular Hemoglobin Concent 33.7% (32.0-37.0) Red Cell Distribution Width 14.8% (12.3-15.4) Platelet Count 175bil/L (150-400) Neutrophils (%) (Auto) 56.7% (40-74) Lymphocytes (%) (Auto) 27.5% (14-46) Monocytes (%) (Auto) 11.3% (4-12) Eosinophils (%) (Auto) 3.8% (0-5) Basophils (%) (Auto) 0.5% (0-3) Sodium Level 139mEq/L (134-144) Potassium Level 4.6mEq/L (3.5-5.2) Chloride Level 104mEq/L (97-108) Carbon Dioxide Level 21mmol/L (18-29) Blood Urea Nitrogen 20mg/dL (8-27) Creatinine 0.94mg/dL (0.76-1.27) Estimat Glomerular Filtration Rate 82mL/min (>59) Glucose Level 160mg/dL (60-99) Calcium Level 9.1mg/dL (8.5-10.1) Magnesium Level 2.0mg/dL (1.6-2.6) Total Bilirubin 0.6mg/dL (0.0-1.2) Aspartate Amino Transf (AST/SGOT) 20U/L (0-50) Alanine Aminotransferase (ALT/SGPT) 15U/L (0-44) Alkaline Phosphatase 50U/L (25-160) Troponin T 0.010ug/L (0.0-0.011) Total Protein 6.6g/dL (6.4-8.4) Albumin 4.0g/dL (3.4-5.0) ECG Interpretation ECG Interpretation: Aflutter with a 2 to 1 conduction ventricular rate 105 R axis deviation nonspecific T-wave abnormality in inferior leads no ST segment elevations when compaired to prior dated 01/09/17, he is now in aflutter Time: 10:47 Interpreted by: ED physician ECG Interpretation: Sinus rate 50, occasional PAC, R axis deviation no ST segment elevation, no T-wave abnL No longer in atrial flutter Time: 12:00 Interpreted by: ED physician X-Ray Chest Interpretation Chest Xray Interpretation: IMPRESSION: Left lower lobe pneumonia. Dictated by: Ashley Eubanks M.D. on 02/02/2017 at 11:19 Approved by: Ashley Eubanks M.D. on 02/02/2017 at 11:20 View: Portable, 1 view Interpretation / Wet Read by: Interpret - Radiologist Procedures Electrical Cardioversion Time: 11:55 Procedure Performed by: ED physician Indication: Atrial flutter (with RVR ) Consent / Setup / Site Prep: Informed consent provided, Consent from parent , Time-out performed, Placed on oxygen, Placed on pulse oximeter, Place on portal administrator, Hand hygiene observed Procedural Sedation/Analgesia: Sedation: Etomidate Joules: 100 Procedure Successful: Yes Post-Procedure Rhythm: Normal sinus rhythm Post-Procedure / Complications: No complications, Condition improved, Tolerated procedure well, Patient stable Proced Mod Sedation/Analgesia Physician left room at 1158. Respiratory therapy still in attendance. Time: 11:53 Procedure Performed by: ED physician Consent / Setup: Informed consent provided, Consent from patient, Time-out performed, Hand hygiene observed, Position supine Indication: Other Preparation: tug boat engineer applied, Pulse oximeter applied, Constant attendance, IV access established, Eval last meal time, Supplemental oxygen, Procedure explained VS Prior to Procedure: O2 saturation normal, Blood pressure normal, Respiratory rate normal Airway Exam: Normal facial anatomy Sedation: Sedation: Etomidate (10) Response During Procedure: Handled secretions adeq, Maintained airway well, Oxygenation stable, Sedation appropriate, Vital signs stable Complications During/After: None Reversal: None required Attestation: I performed procedure, I performed sedation Re-Eval/Medical Decision Med Decision/Clinical Course In summary, the patient is an 81-year-old male with a history of atrial fibrillation/flutter who presents to the emergency department with intermittent episodess of sensation of racing heart with associated lightheadedness and shortness of breath. He is currently on Eliquis and has been taking it regularly for the last month. Upon arrival in the emergency department the patient is tachycardic with a heart rate ranging from the low 100s to the 150s. He is otherwise hemodynamically stable. Laboratory studies were notable as below: CBC WNL CMP WNL Trop neg EKG: Aflutter with a 2 to 1 conduction ventricular rate 105 R axis deviation nonspecific T-wave abnormality in inferior leads no ST segment elevations when compaired to prior dated 01/09/17, he is now in aflutter Repeat EKG: Sinus rate 50, occasional PAC, R axis deviation no ST segment elevation, no T-wave abnL No longer in atrial flutter He should presents with atrial flutter with rapid ventricular response and associated symptoms of lightheadedness and shortness of breath. Patient was discussed with his operating room assistant and he is noted to already be on our request and therefore a candidate for electrical cardioversion. This was discussed with the patient and we performed procedural sedation and subsequent electrical cardioversion as documented above. We had good resolution of his symptoms and resumption of normal sinus rhythm. Patient reported feeling markedly improved thereafter. At this time there is no evidence of significant insult causing his atrial flutter. Of note, there are no findings of significant electrolyte abnormalities, acute infectious process or cardiac ischemia. Patient feels better and would like to be discharged. Of note, he was noted to be slightly tachycardic with a heart rate in the 50s after cardioversion and therefore I opted not to increase his metoprolol dose though we had previously discussed this with his operating room assistant. He will follow up first thing on Saturday with his operating room assistant and continue all of his regular medications in the meantime. Prior to discharge follow-up and return precautions were reviewed in detail with the patient who verbalized understanding and agreement with the plan. The patient was discharged in stable condition. Time of Eval: 11:47 Re-Evaluation/Progress Note: Rechecked pt. Discussed procedure. Patient understands and agrees with plan. All questions addressed at this time. Time of Eval: 12:18 Re-Evaluation/Progress Note: Discussed plan for discharge. Patient understands and agrees with plan. All questions addressed at this time. Consultation : Referral / Consult Name: Tsering Brand MD Consulted With: Cardiology Call Returned at: 11:26 Polls Or Surveys Interviewer: Agrees with eval, Agrees with plan Note: Discussed pt's case. If pt has been taking blood thinners regularly, cardiovert. Counseled Regarding: Diagnosis, Lab results, Need for follow-up, When/why to return to ED Discharge & Departure Primary Impression: Atrial flutter with rapid ventricular response Additional Impressions: Tachycardia Lightheadedness Disposition: Home Discharge Condition All VS Reviewed: Yes Condition: Improved Patient Instructions: Atrial Flutter (ED) Additional Instructions: Thank you for seeking care at the emergency room. It is difficult for us to make definitive diagnoses in the ED but we believe that were experiencing atrial flutter. We were able to convert your back to sinus rhythm. Continue to take all of your prescription medications, including metoprolol and flecainide. Call Dr. Madison Saturday to schedule a follow up appointment as soon as possible. You should return to the ED immediately if you develop shortness of breath, chest pain, lightheadedness, weakness, racing heart, or any other concerning signs or symptoms. Thank you for letting us partake in your care today. Referrals: Miguel Scott MD (PCP) Crit Care Except Billable Proc Time Spent: 75-104 minutes Services Performed: Patient management by me, Time spent at bedside, Reviewing test results, Reviewing imaging, Discussing patient care, Documentation in record, Time with fam/surrogate Critical Care Notes: Independent of separately billable procedures. Scribe Attestation Portions of this note were transcribed by Angelia Cueva. I, Dr. Zhao personally performed the history, physical exam and medical decision-making; I reviewed and confirmed the accuracy of the information in the transcribed note. Signed: Tisha Armstrong, 02/02/17 copies to: Miguel Scott MD, Beck O MD Feb 02, 2017 10:51 ANGELIA CUEVA Feb 02, 2017 11:01
[2017-02-02 11:06] VITALS: BP 137/83; PULSE 105; RESP 18; O2SAT 95
[2017-02-02 11:12] LABS: BASOPHILS % (AUTO) 0.5 % (0-3); EOSINOPHILS % (AUTO) 3.8 % (0-5); MONOCYTES % (AUTO) 11.3 % (4-12); Mean Corpuscular Hemoglobin 32.4 pg (27.0-35.0); Mean Corpuscular Volume 96.2 fL (81-100); NEUTROPHILS % (AUTO) 56.7 % (40-74); Platelet Count 175 bil/L (150-400)
--- NOTE | 2017-02-02 11:21 | DRSVH ---
PROCEDURE: X-RAY CHEST ONE VIEW, PORTABLE ([id number]) INDICATIONS: palpitaions TECHNIQUE: One view of the chest was acquired. COMPARISON: Located Within [facility], CR, XR CHEST 2VW, 10/03/2015, 16:07. Located Within [facility], CR, CHEST 1VW (PORTABLE), 08/08/2014, 20:49. FINDINGS: Surgical changes and devices: None. Lungs and pleura: Left lower lobe infiltrate suspicious for pneumonia. No pleural effusions or pneum othorax. Mediastinum: Mediastinal contours appear normal. Heart size is normal. Bones and chest wall: No suspicious bony lesions. Overlying soft tissues appear unremarkable. IMPRESSION: Left lower lobe pneumonia. Dictated by: Ashley Eubanks M.D. on 02/02/2017 at 11:19 Approved by: Ashley Eubanks M.D. on 02/02/2017 at 11:20
[2017-02-02] MEDS ORDERED: Etomidate 2 mg/mL 20 mL Inj IV ONE (11:30)
[2017-02-02 11:37] LABS: TROPONIN T 0.01 ug/L (0.0-0.011)
[2017-02-02 11:49] VITALS: BP 124/79; PULSE 114; RESP 16; O2SAT 96
[2017-02-02 11:57] VITALS: PULSE 54; RESP 12; O2SAT 92
[2017-02-02 11:58] VITALS: BP 134/80
[2017-02-02 12:41] VITALS: BP 115/66; PULSE 53; RESP 12; O2SAT 100
== END 2017-02-02 12:40 | disposition home or self-care (01) ==
LOC: SED 10:34
DX: I48.92 Unspecified atrial flutter (principal); R00.0 Tachycardia, unspecified; R42 Dizziness and giddiness; I25.2 Old myocardial infarction; I25.10 Atherosclerotic heart disease of native coronary artery without angina pectoris; I10 Essential (primary) hypertension; E11.9 Type 2 diabetes mellitus without complications; E78.5 Hyperlipidemia, unspecified; Z95.5 Presence of coronary angioplasty implant and graft; Z87.891 Personal history of nicotine dependence; Z87.442 Personal history of urinary calculi